=== PATIENT | male | born 1965 | race Caucasian/White ===

== ENCOUNTER → 2024-01-21 07:20 | Outpatient (REF) | payer OTHER, SELFPAY | LOC: MRI 3T 07:20 | PROVIDERS: ATTENDING PHYSICIAN Specialist; FAMILY PHYSICIAN Family Medicine | DX: R97.20 Elevated prostate specific antigen [PSA] (principal) | CPT/HCPCS: 72197; A9575 ==

== ENCOUNTER 2024-03-18 16:14 | Day surgery (SDC) | payer OTHER, SELFPAY ==
[2024-03-18 13:30] VITALS: BMI 42.4
[2024-03-18 13:40] VITALS: BP 103/83
[2024-03-18 14:00] VITALS: BMI 42.4
[2024-03-18 17:17] VITALS: BP 113/72
[2024-03-18 17:30] VITALS: BP 122/85
[2024-03-18 17:45] VITALS: BP 96/76
== END 2024-03-18 17:56 | disposition home or self-care (01) ==
LOC: GI 16:14
PROVIDERS: ATTENDING PHYSICIAN Specialist
DX: Z12.11 Encounter for screening for malignant neoplasm of colon (principal); Z86.010 Personal history of colon polyps; K57.30 Diverticulosis of large intestine without perforation or abscess without bleeding; D12.8 Benign neoplasm of rectum; D12.3 Benign neoplasm of transverse colon; D12.0 Benign neoplasm of cecum; D12.4 Benign neoplasm of descending colon
CPT/HCPCS: 45385; 45380

== ENCOUNTER → 2024-07-06 16:32 | Outpatient (REF) | payer OTHER, SELFPAY | LOC: RAD 16:32 | PROVIDERS: ATTENDING PHYSICIAN Radiology Radiation Oncology; FAMILY PHYSICIAN Family Medicine | DX: K40.31 Unilateral inguinal hernia, with obstruction, without gangrene, recurrent (principal) | CPT/HCPCS: 74177; Q9967 ==